=== PATIENT | male | born 1990 | race Two or more races ===

== ENCOUNTER 2025-04-30 10:53 | Emergency (ER) | payer MEDICAID, OTHER ==
[~2025-04-30] VITALS: Ht 185.4 cm; Wt 100.0 kg
[2025-04-30 11:02] VITALS: TEMP 36.7; O2SAT 98
[2025-04-30] MEDS: CLONIDINE 0.1MG TABLET PO SCH (12:30)
[2025-04-30] MEDS: CHLORDIAZEPOXIDE 25MG CAPSULE PO SCH (12:30)
[2025-04-30] MEDS: HYDROCHLOROTHIAZIDE 25MG TABLET PO SCH (12:30)
[2025-04-30 12:53] VITALS: BP 162/90; PULSE 89; RESP 20; O2SAT 99
== END 2025-04-30 12:55 ==
LOC: ER 10:53
DX: F10.139 Alcohol abuse with withdrawal, unspecified (principal); I10 Essential (primary) hypertension; Y90.9 Presence of alcohol in blood, level not specified
CPT/HCPCS: 99284